=== PATIENT | male | born 1955 | race Hispanic/Latino ===

== ENCOUNTER 2020-12-02 04:50 | Emergency (ER) | payer BC, OTHER ==
[~2020-12-02] VITALS: Ht 177.8 cm; Wt 111.1 kg
[2020-12-02] MEDS ORDERED: ONDANSETRON 4MG INJ ONE (05:08)
[2020-12-02 05:22] LABS: BASOPHILS % (AUTO) 0.5 % (0.0-5.0); EOSINOPHILS % (AUTO) 3.8 % (0.0-8.0); HEMATOCRIT 44.2 % (42-54); LYMPHOCYTES % (AUTO) 26.8 % (21.0-51.0); MEAN CORPUSCULAR HEMOGLOBIN 30.3 pg (27.0-33.0); MEAN CORPUSCULAR HGB CONC 34.2 g/dL (32.0-36.0); MEAN CORPUSCULAR VOLUME 88.6 fL (79-99); NEUTROPHILS % (AUTO) 61.4 % (40.0-77.0); PLATELET COUNT (AUTO) 150 K/uL (130-400); RED BLOOD CELL COUNT(AUTO) 4.99 MIL/uL (4.50-6.20); RED CELL DISTRIBUTION WIDTH 13.2 % (11.0-15.5); WHITE BLOOD COUNT (AUTO) 6.6 K/uL (4.8-10.8)
[2020-12-02 05:38] LABS: ALBUMIN 3.9 g/dL (3.5-5.0); BILIRUBIN,TOTAL 0.2 mg/dL (0.2-1.0); CREATININE 1.1 mg/dL (0.5-1.5); POTASSIUM 3.8 mmol/L (3.5-5.1); TOTAL PROTEIN, SERUM 7.6 g/dL (6.0-8.3)
[2020-12-02 05:51] LABS: B-TYPE NATRIURETIC PEPTIDE 6 pg/mL (0-100)
[2020-12-02 05:53] LABS: APPEARANCE,URINE Clear (CLEAR); BILIRUBIN,URINE Negative (NEGATIVE); COLOR,URINE Yellow (YELLOW); GLUCOSE, URINE (UA) 250 mg/dL (NEGATIVE); KETONES,URINE Negative (NEGATIVE); LEUKOCYTE ESTERASE ,URINE Negative (NEGATIVE); NITRATE,URINE Negative (NEGATIVE); OCCULT BLOOD,URINE Negative (NEGATIVE); PROTEIN,URINE Trace mg/dL (NEGATIVE)
[2020-12-02 06:03] LABS: BACTERIA,URINE None Seen /HPF (None Seen); RBC,URINE None Seen /HPF (0-1); SQUAMOUS EPITHELIAL CELL,UR Rare /HPF (0-2); WBC,URINE None Seen /HPF (0-1); YEAST,URINE BUDDING None Seen /HPF (None Seen)
[2020-12-02] MEDS ORDERED: IOHEXOL-350 75 ML VIAL IV ONE ×2 (07:32→08:00)
[2020-12-02] MEDS ORDERED: MECL-226 PO (10:13)
[2020-12-02 10:33] VITALS: BP 140/80
== END 2020-12-02 10:31 | disposition home or self-care (01) ==
LOC: EDH 04:50
DX: H81.399 Other peripheral vertigo, unspecified ear (principal); R11.0 Nausea; H93.12 Tinnitus, left ear; Z79.1 Long term (current) use of non-steroidal anti-inflammatories (NSAID); Z79.899 Other long term (current) drug therapy
CPT/HCPCS: 36415; 70450; 70496; 70498; 71045; 80053; 81001; 82550; 82948; 83880; 84484; 85025; 93005; 96374; 99285; J2405; Q9967 ×2

== ENCOUNTER → 2023-09-14 | Outpatient (CLI) | payer OTHER ==
[~2023-09-14] MED LIST: MECL-226 PO
[2023-09-14 22:25] VITALS: PULSE 61; RESP 12
[2023-09-14 23:01] VITALS: PULSE 66; RESP 18
[2023-09-14 23:30] VITALS: PULSE 54; RESP 16
[2023-09-15] VITALS (10 sets, daily range): PULSE 51–63; RESP 16–18
== END | disposition home or self-care (01) ==
LOC: SLP 20:36
PROVIDERS: ATTEND Internal Medicine
DX: G47.33 Obstructive sleep apnea (adult) (pediatric) (principal); R06.83 Snoring
CPT/HCPCS: 95810

== ENCOUNTER → 2023-09-21 | Outpatient (CLI) | payer OTHER | END | disposition home or self-care (01) | LOC: SLP 20:27 | PROVIDERS: ATTEND Internal Medicine | DX: R06.83 Snoring (principal) | CPT/HCPCS: 95811 ==